=== PATIENT | male | born 1965 | race Caucasian/White ===

== ENCOUNTER 2022-09-12 07:48 | Outpatient (CLI) | payer OTHER | END 2022-09-12 08:12 | disposition home or self-care (01) | LOC: TOM 07:48 | PROVIDERS: ATTEND Internal Medicine Gastroenterology | DX: R19.5 Other fecal abnormalities (principal); Z86.000 Personal history of in-situ neoplasm of breast; K56.50 Intestinal adhesions [bands], unspecified as to partial versus complete obstruction ==